=== PATIENT | female | born 1965 | race Caucasian/White ===

== ENCOUNTER 2016-09-07 06:54 | Day surgery (SDC) | payer OTHER ==
[~2016-09-07 06:54] MED LIST: CLARITIN10 M6 PO; IBUPROFEN PO; [UNRECOGNIZED DRUG - OTHER] PO
[2016-09-07 07:44] LABS: BASO % 0.9 % (0-2); EOS % 0.7 % (0-7); HGB-HEMOGLOBIN 13.9 gm/dl (12.0-15.5); LYMPH % 19.1 % (20-45); LYMPH ABSOLUTE COUNT 0.8 tho/cmm (0.8-4.5); MCH (MEAN CORPUSCULAR HGB) 32.6 pg (28.0-32.0); MCHC MEAN CORPUSCULAR HGB CONC 34.8 % (32.0-36.0); MCV (MEAN CELL VOLUME) 93.7 fl (82.0-96.0); MEAN PLATELET VOLUME 10.3 cmc (9.4-12.4); MONO % 13.3 % (0-12); MONOCYTE ABSOLUTE COUNT 0.6 tho/cmm (0.0-1.2); NEUTROPHIL ABSOLUTE COUNT 2.8 tho/cmm (1.6-8.0); NEUTROPHIL-AUTOMATED 2.8 tho/cmm (1.6-8.0); PLATELET COUNT 160 tho/cmm (150-450); RED BLOOD COUNT 4.27 mil/cmm (4.00-5.20); RED CELL DISTRIBUTION WIDTH 12.5 % (12.4-16.4); WHITE BLOOD COUNT 4.3 tho/cmm (4.0-10.0)
[2016-09-07 08:02] LABS: PREGNANCY-SERUM NEGATIVE (NEGATIVE)
[2016-09-07 08:05] LABS: ALB/GLOB RATIO 1.3 (0.8-2.0); ALBUMIN 3.8 g/dl (3.5-5.0); ALKALINE PHOSPHATASE 74 U/L (33-138); ALT/SGPT 20 U/L (12-78); ANION GAP 13 mmol/L (0-20); AST/SGOT 17 U/L (10-40); BILIRUBIN,TOTAL 0.7 mg/dl (0-1.5); BLOOD UREA NITROGEN 14 mg/dl (6-24); CALCIUM 8.6 mg/dl (8.5-10.5); CARBON DIOXIDE-VENOUS 26 mmol/L (22-32); CHLORIDE 109 mmol/l (96-110); CREATININE 0.64 mg/dl (0.50-1.10); GLUCOSE 100 mg/dL (70-110); POTASSIUM 3.6 mmol/L (3.7-5.1); SODIUM 144 mmol/L (135-145); eGFR VALUE FOR BLACK >90 mL/Min
[2016-09-08] MEDS ORDERED: PERCOCET 5-3251 EACH PO (02:47)
== END 2016-09-08 10:10 ==
LOC: WSU 06:54 → SHSC 06:57 → ORW 08:58 → PACU 10:34 → OBGF 12:15
PROVIDERS: Obstetrics & Gynecology
PROC: 0UT94ZZ Resection of Uterus, Percutaneous Endoscopic Approach (ICD-10-PCS; principal; 2016-09-07)
PROC: 0UTC4ZZ Resection of Cervix, Percutaneous Endoscopic Approach (ICD-10-PCS; 2016-09-07)
PROC: 0UT74ZZ Resection of Bilateral Fallopian Tubes, Percutaneous Endoscopic Approach (ICD-10-PCS; 2016-09-07)
PROC: 8E0W4CZ Robotic Assisted Procedure of Trunk Region, Percutaneous Endoscopic Approach (ICD-10-PCS; 2016-09-07)
DX: D25.1 Intramural leiomyoma of uterus (principal); N73.6 Female pelvic peritoneal adhesions (postinfective); N84.0 Polyp of corpus uteri; Z79.899 Other long term (current) drug therapy; Z88.1 Allergy status to other antibiotic agents; Z88.2 Allergy status to sulfonamides; Z90.89 Acquired absence of other organs; Z98.890 Other specified postprocedural states
CPT/HCPCS: J0690; J0780; J1170; J2405; J7030; J7121